=== PATIENT | male | born 1970 | race African-American/Black ===

== ENCOUNTER 2021-01-25 05:33 | Inpatient (IN) ==
[2021-01-25] MEDS ORDERED: DIPHTHERIA/TETANUS ADULT VACCINE 0.5 ML SYRINGE IM ONE (05:52)
[2021-01-25] MEDS ORDERED: MORPHINE 2 MG/1 ML SYRINGE IV STA (06:03)
[2021-01-25 06:04] LABS: Basophils # 0.1 10*3/uL (0.0-0.2); Basophils % 0.4 % (0.0-0.8); Eosinophils % 0.1 % (0.00-10.9); Hematocrit 43.5 VOL% (42.0-52.0); Hemoglobin 14.4 GM/DL (14.0-18.0); Immature Granulocytes % 0.5 %; Immature Granulocytes Absolute 0.07 #; Lymphocytes # 1.7 10*3/uL (1.4-4.0); Lymphocytes % 12.7 % (21.2-54.2); Mean Corpuscular HGB Conc 33.1 GM/DL (32-36); Mean Corpuscular Volume 97.8 FL (87-102); Mean Platelet Volume 9.6 FL (9.6-12.0); Monocytes % 5.7 % (1.7-12.7); Neutrophils % 80.6 % (38.7-73.9); Platelet Count 286 T/CUMM (130-400); Red Blood Count 4.45 MC/CUMM (3.8-5.5); Red Cell Distribution Width 11.7 % (9.3-17.3); White Blood Count 13.6 T/CUMM (4-12)
[2021-01-25] MEDS ORDERED: MORPHINE 2 MG/1 ML SYRINGE ONE (06:04)
[2021-01-25 06:21] LABS: PT Patient Result 10.9 SECS (10.5-12.0); Partial Thromboplastin Time 22.8 SECS (23.8-32.1)
[2021-01-25 06:27] LABS: Alanine Aminotransferase 50 U/L (16-61); Albumin 3.7 G/DL (3.4-5.0); Alkaline Phosphatase 59 U/L (45-117); Aspartate Amino Transferase 57 U/L (0-37); Blood Urea Nitrogen 9 MG/DL (7-18); Calcium 9.1 MG/DL (8.5-10.1); Carbon Dioxide 30 MMOL/L (21-32); Estimated Glom Filtration Rate 73 ML/MIN; Glucose 117 MG/DL (74-106); Osmolality,Calculated 278.4 MOS/KG (273-304); Potassium 3.5 MMOL/L (3.5-5.1); Sodium 140 MMOL/L (136-145); Total Protein 7.2 G/DL (6.4-8.2)
[2021-01-25] MEDS ORDERED: ONDANSETRON 4 MG/2 ML VIAL IV STA (06:44)
[2021-01-25] MEDS ORDERED: HYDROmorphone 2 MG/1 ML VIAL IV STA (06:44)
[2021-01-25] MEDS ORDERED: LIDOCAINE 1%/EPI INJ 20 ML VIAL ONE (07:42)
[2021-01-25] MEDS ORDERED: ACETAMINOPHEN 325 MG TABLET PO PRN (08:00)
[2021-01-25] MEDS ORDERED: ONDANSETRON 4 MG/2 ML VIAL IV PRN (08:00)
[2021-01-25] MEDS: MORPHINE 2 MG/1 ML SYRINGE IV PRN ×3 (08:41→20:50)
[2021-01-25 08:49] LABS: Barbiturates Screen,Urine Negative (Negative); Benzodiazepines Screen,Urine Positive (Negative); Cannabinoid Screen,Urine Positive (Negative); Opiate Screen,Urine Positive (Negative); Phencyclidine Screen,Urine Negative (Negative)
[2021-01-25] MEDS: PANTOPRAZOLE 40 MG TABLET PO SCH (09:18)
[2021-01-25] MEDS ORDERED: propofoL 200 MG/20 ML VIAL IV ONE (11:21)
[2021-01-25] MEDS ORDERED: LIDOCAINE 2% 5 ML VIAL ONE (11:21)
[2021-01-25] MEDS ORDERED: fentaNYL 100 MCG/2 ML VIAL ONE (11:21)
[2021-01-25] MEDS ORDERED: MIDAZOLAM 2 MG/2 ML VIAL ONE ×2 (11:22→11:23)
[2021-01-25] MEDS ORDERED: LACTATED RINGERS 1,000 ML IV ONE ×2 (11:24→12:41)
[2021-01-25] MEDS ORDERED: ceFAZolin 1,000 MG VIAL ONE (12:04)
[2021-01-25] MEDS ORDERED: PHENYLEPHRINE 1 MG/10 ML SYRINGE IV ONE (12:04)
[2021-01-25] MEDS ORDERED: INFLUENZA VIRUS VACCINE 0.5 ML SYRINGE IM ONE (12:08)
[2021-01-25] MEDS ORDERED: ACETAMINOPHEN INJ 1,000 MG/100 ML VIAL IV ONE (12:24)
[2021-01-25] MEDS ORDERED: KETOROLAC 30 MG/1 ML VIAL ONE (12:27)
[2021-01-25] MEDS ORDERED: ONDANSETRON 4 MG/2 ML VIAL ONE (12:27)
[2021-01-25] MEDS ORDERED: BUPIVACAINE MPF 0.25% 30 ML VIAL ONE (12:44)
[2021-01-25] MEDS ORDERED: DEXAMETHASONE 4 MG/1 ML VIAL ONE (12:44)
[2021-01-25] MEDS ORDERED: LIDOCAINE 1% 5 ML VIAL ONE (12:44)
[2021-01-25] MEDS ORDERED: SEVOFLURANE 1 UNIT/15 MINUTE INH ONE (12:56)
[2021-01-25] MEDS: DEXTROSE 5% LACTATED RINGERS 1,000 ML IV SCH (14:39)
[2021-01-26] MEDS: DEXTROSE 5% LACTATED RINGERS 1,000 ML IV SCH ×3 (00:11→10:45)
[2021-01-26] MEDS: MORPHINE 2 MG/1 ML SYRINGE IV PRN ×4 (04:15→22:44)
[2021-01-26 06:55] LABS: Basophils % 0.1 % (0.0-0.8); Hematocrit 35.9 VOL% (42.0-52.0); Immature Granulocytes % 0.5 %; Immature Granulocytes Absolute 0.05 #; Lymphocytes # 1.2 10*3/uL (1.4-4.0); Mean Corpuscular HGB Conc 32.9 GM/DL (32-36); Mean Corpuscular Volume 101.7 FL (87-102); Mean Platelet Volume 10.2 FL (9.6-12.0); Monocytes % 6.7 % (1.7-12.7); Neutrophils % 81.7 % (38.7-73.9); Platelet Count 230 T/CUMM (130-400); Red Cell Distribution Width 11.5 % (9.3-17.3); White Blood Count 10.4 T/CUMM (4-12)
[2021-01-26 07:15] LABS: Hemoglobin 11.8 GM/DL (14.0-18.0); Red Blood Count 3.53 MC/CUMM (3.8-5.5)
[2021-01-26 07:25] LABS: Calcium 8.6 MG/DL (8.5-10.1); Osmolality,Calculated 277.4 MOS/KG (273-304); Potassium 3.6 MMOL/L (3.5-5.1)
[2021-01-26] MEDS: PANTOPRAZOLE 40 MG TABLET PO SCH (09:01)
[2021-01-27] MEDS: MORPHINE 2 MG/1 ML SYRINGE IV PRN ×2 (04:10→12:39)
[2021-01-27] MEDS: PANTOPRAZOLE 40 MG TABLET PO SCH (09:21)
[2021-01-27 22:37] VITALS: BP 121/58
== END 2021-01-27 22:35 | disposition home or self-care (01) | DRG 481 ==
LOC: N.ED 05:33 → N.EDINP 08:00 → N.3E 08:41
PROVIDERS: ADMIT Surgery; ATTEND Surgery